=== PATIENT | male | born 1985 | race Caucasian/White ===

== ENCOUNTER 2017-01-17 13:46 | Emergency (ER) | payer SELFPAY ==
[2017-01-17 14:09] VITALS: O2SAT 99
--- NOTE | 2017-01-17 14:54 | ED.PDOC ---
History of Present Illness - General Chief Complaint: ENT Problem Time Seen by Provider: 01/17/17 14:43 Source: patient Exam Limitations: no limitations - History of Present Illness Initial Comments: Patient presents with one week of a sore throat and fever. He says he measured the fever at home with a forehead strip and it was 102. No cough. Has had weakness. It hurts to swallow and he feels swelling in his throat. No previous episodes. No other complaints. Timing/Duration: 1 week Severity: moderate Improving Factors: nothing Worsening Factors: eating Associated Symptoms: fever/chills Allergies/Adverse Reactions: Allergies Penicillins Allergy (Unknown, Verified 01/17/17 14:08) Hives Home Medications: Ambulatory Orders Nexium 05/03/15 Tramadol HCl [Ultram] 50 mg PO Q6HR PRN #15 tab 05/08/15 levoFLOXacin [Levaquin] 500 mg PO QDPC #10 tab 01/17/17 Review of Systems - Review of Systems Constitutional: States: see HPI EENTM: States: see HPI Respiratory: States: no symptoms reported Cardiology: States: no symptoms reported Gastrointestinal/Abdominal: States: no symptoms reported Genitourinary: States: no symptoms reported Musculoskeletal: States: no symptoms reported Skin: States: no symptoms reported Neurological: States: no symptoms reported Endocrine: States: no symptoms reported Hematologic/Lymphatic: States: see HPI Past Medical History (General) - Patient Medical History Hx Seizures: No Hx Stroke: No Hx Dementia: No Hx Asthma: No Hx of COPD: No Hx Cardiac Disorders: No Hx Congestive Heart Failure: No Hx Pacemaker: No Hx Hypertension: No Hx Thyroid Disease: No Hx Diabetes: No Hx Gastroesophageal Reflux: Yes Hx Renal Disease: No Hx of HIV: No Hx Hepatitis C: Yes Hx MRSA: Yes MRSA Source:: Wound Surgical History: appendectomy, cholecystectomy, tonsillectomy - Vaccination History Hx Influenza Vaccination: Yes - 2016 Hx Pneumococcal Vaccination: No - Social History Hx Tobacco Use: No Family Medical History - Family History Mother Family History: No Known Living Status: Still Living Physical Exam - Physical Exam General Appearance: Alert Ears, Nose, Throat: other - Swelling of the uvula. OP clear. Neck: non-tender, full range of motion, supple, lymphadenopathy (R) - mildly tender right anterior cervical LAD, mobile, fluctuant, rubbery in consistency Respiratory: lungs clear Cardiovascular/Chest: regular rate, rhythm Gastrointestinal/Abdominal: normal bowel sounds, non tender, soft Back Exam: no CVA tenderness Neurologic: consumer insights intern II-XII nml as tested Skin Exam: normal color Progress - Progress Progress: 01/17/17 14:56 Rapid strep negative. Departure - Departure Clinical Impression: Uvulitis Disposition: Discharge to Home or Self Care Condition: Good Departure Forms: ED Discharge - Pt. Copy, Patient Portal Self Enrollment Diet: resume usual diet Activity: increase activity as tolerated Prescriptions: levoFLOXacin [Levaquin] 500 mg PO QDPC #10 tab Home Medications: Ambulatory Orders Nexium 05/03/15 Tramadol HCl [Ultram] 50 mg PO Q6HR PRN #15 tab 05/08/15 levoFLOXacin [Levaquin] 500 mg PO QDPC #10 tab 01/17/17 Additional Instructions: Take medication as prescribed. Ibuprofen for pain and fever control. Increase oral fluids. Return to clinic or ER if symptoms are not gone in 7-10 days.
[2017-01-19 07:25] VITALS: BP 118/82; TEMP 98
== END 2017-01-17 16:15 | disposition home or self-care (01) ==
LOC: ER 13:46
DX: K12.2 Cellulitis and abscess of mouth (principal); K21.9 Gastro-esophageal reflux disease without esophagitis; Z88.0 Allergy status to penicillin; Z86.19 Personal history of other infectious and parasitic diseases

== ENCOUNTER 2017-07-03 08:54 | Inpatient (IN) | payer SELFPAY ==
[2017-07-03] MEDS ORDERED: SODIUM CHLORIDE 0.9% (FLUSH) 10 ML SYG IV PRN ×2 (09:34→15:00)
[2017-07-03] MEDS: SODIUM CHLORIDE 0.9% 1000ML 1,000 ML IVS PRN ×2 (09:42→12:03)
[2017-07-03] MEDS ORDERED: SODIUM CHLORIDE 0.9% 1000ML 1,000 ML IVS ONE (11:12)
--- NOTE | 2017-07-03 11:22 | ED.PDOC ---
History of Present Illness - General Chief Complaint: Drug or Alcohol Abuse Stated Complaint: drug overdose Time Seen by Provider: 07/03/17 09:33 Source: patient Exam Limitations: clinical condition, intoxication - History of Present Illness Initial Comments: PT PRESENTS TO THE ED IN SEVERE DISTRESS AND REQUIRES MY IMMEDIATE ATTENTION, HPI AND ROS LIMITED DUE TO PTS CONDITION. PT ADMITS TO USING IV METH TODAY AND NOW COMPLAINS OF SEVERE BACK PAIN. Timing/Duration: 1-3 hours Severity: severe Allergies/Adverse Reactions: Allergies Penicillins Allergy (Unknown, Verified 07/03/17 09:29) Hives Home Medications: Ambulatory Orders Nexium 05/03/15 Tramadol HCl [Ultram] 50 mg PO Q6HR PRN #15 tab 05/08/15 levoFLOXacin [Levaquin] 500 mg PO QDPC #10 tab 01/17/17 Review of Systems - Review of Systems Constitutional: States: see HPI EENTM: States: see HPI Respiratory: States: see HPI Cardiology: States: see HPI Gastrointestinal/Abdominal: States: see HPI Genitourinary: States: see HPI Musculoskeletal: States: see HPI Skin: States: see HPI Neurological: States: see HPI Endocrine: States: see HPI Hematologic/Lymphatic: States: see HPI Past Medical History (General) - Patient Medical History Hx Seizures: No Hx Stroke: No Hx Dementia: No Hx Asthma: No Hx of COPD: No Hx Cardiac Disorders: No Hx Congestive Heart Failure: No Hx Pacemaker: No Hx Hypertension: No Hx Thyroid Disease: No Hx Diabetes: No Hx Gastroesophageal Reflux: Yes Hx Renal Disease: No Hx of HIV: No Hx Hepatitis C: Yes Hx MRSA: Yes MRSA Source:: Wound Surgical History: other - Vaccination History Hx Influenza Vaccination: No Hx Pneumococcal Vaccination: No - Social History Hx Tobacco Use: No Hx Substance Use: Yes - IV METHAMPHETAMINE USE Hx Substance Use Treatment: - unknown - Activities of Daily Living Hospice Agency (if applicable):: None Family Medical History - Family History Mother Family History: No Known Living Status: Still Living Physical Exam - Physical Exam General Appearance: Agitated, Anxious, Obvious distress, Restless Ears, Nose, Throat: other - POOR DENTITION Respiratory: lungs clear, normal breath sounds, no respiratory distress Cardiovascular/Chest: no murmur, tachycardia Gastrointestinal/Abdominal: non tender, soft Back Exam: normal inspection Extremity: no pedal edema, other - TRACK LEY NOTED TO B/L UPPER EXTREMITIES Skin Exam: normal color, warm/dry Progress - Progress Progress: 07/03/17 11:24 PT RESTING COMFORTABLY, LESS TACHYCARDIC, HR NOW 115 AFTER 2MG IV ATIVAN AND IV NS. PTS MOTHER AT BEDSIDE, STATES THAT PT HAS BEEN SELF MEDICATING DUE TO DENTAL PAIN AND ISSUES WITH A RECENT DIVORCE. 07/03/17 11:44 PT CONTINUES TO REST COMFORTABLY, REMAINS TACHYCARDIC AFTER 2ND LITER IV NS. TEMP NOW 101.1, TYLENOL ORDERED, SEPIS PROTOCOL STARTED. DECISION MADE TO ADMIT. - Results/Orders Results/Orders: 07/03/17 09:34 URINE DRUG SCREEN, 7 ASSAY Stat Sodium Chloride 0.9% (Flush) [Saline Flush Syringe] 10 ml IV PRN PRN Sodium Chloride 0.9% 1000ML [Ns 1000 ml] 1,000 ml IVS .QD URINALYSIS Stat 07/03/17 09:45 EKG STAT 07/03/17 11:10 CK-MB Stat CREATINE PHOSPHOKINASE Stat 07/03/17 11:11 Chest,1 View [RAD] Stat 07/03/17 11:12 Sodium Chloride 0.9% 1000ML [Ns 1000 ml] 1,000 ml IVS ONCE UA [URINALYSIS] Stat Laboratory Results - last 24 hr 07/03/17 07/03/17 07/03/17 09:50 09:50 09:50 WBC 2.3 L* RBC 4.59 L Hgb 12.9 L Hct 37.1 L MCV 80.9 MCH 28.1 MCHC 34.8 RDW 13.2 Plt Count 318 MPV 6.9 L Absolute Neuts (auto) Not Reportable Absolute Lymphs (auto) Not Reportable Absolute Monos (auto) Not Reportable Absolute Eos (auto) Not Reportable Neutrophils % Not Reportable Neutrophils % (Manual) 71.0 Lymphocytes % Not Reportable Lymphocytes % (Manual) 19.0 Monocytes % Not Reportable Monocytes % (Manual) 3.0 Eosinophils % Not Reportable Basophils % Not Reportable Band Neutrophils 6.0 Eosinophils 1.0 RBC Morphology Plts antolin adequate Sodium 138 Potassium 3.0 L Chloride 105 Carbon Dioxide 23 Anion Gap 13.0 BUN 14 Creatinine 0.97 BUN/Creatinine Ratio 14.4 Random Glucose 96 Serum Osmolality 276.0 Calcium 8.9 Total Bilirubin 1.6 H AST 82 H ALT 61 H Alkaline Phosphatase 146 H Creatine Kinase 121 CK-MB (CK-2) 1.8 CK-MB (CK-2) % Not Reportable Troponin I 0.04 Serum Total Protein 6.5 Albumin 3.8 Globulin 2.7 Albumin/Globulin Ratio 1.4 Ethyl Alcohol < 5.40 - EKG/XRAY/CT EKG: Sinus - TACHYCARDIA@135BPM, NO INTERVALS, NL AXIS, ST depression - INFERIOR AND LATERAL LEADS WITH NO OLD EKG FOR COMPARISON XRAY: chest Xray Comments: VASCULAR CONGESTION WITH R LUNG INFILTRATE Departure - Departure Clinical Impression: Sepsis, Pneumonia, Leukopenia, Methamphetamine abuse, IV drug abuse Time of Disposition: 11:48 Disposition: Admit Patient Condition: Fair Departure Forms: ED Discharge - Pt. Copy, Patient Portal Self Enrollment Referrals: Willy Rodriguez MD [Primary Care Provider] - 1-2 Weeks Home Medications: Ambulatory Orders Nexium 05/03/15 Tramadol HCl [Ultram] 50 mg PO Q6HR PRN #15 tab 05/08/15 levoFLOXacin [Levaquin] 500 mg PO QDPC #10 tab 01/17/17 Decision To Admit - Decistion To Admit Decision to Admit Reason: Admit from ER - SEPSIS, PNEUMONIA, LEUKOPENIA, METHAMPHETAMINE ABUSE Decision to Admit Date: 07/03/17 - CASE DISCUSSED WITH RICARDO SPRING WHO AGREES TO ADMIT Decision to Admit Time: 11:49
--- NOTE | 2017-07-03 11:27 | RAD ---
EXAM DESCRIPTION: Chest,1 View CLINICAL HISTORY: Leukopenia. Altered mental status. FINDINGS/ IMPRESSION: Mild cardiac enlargement. Vascular congestion with faint interstitial infiltrate in the right lung. This could be edema or infectious infiltrate. No dense alveolar consolidation or pleural effusion Electronically signed by: Alvarez Ramírez MD 07/03/2017 11:26 AM CDT
[2017-07-03] MEDS ORDERED: ACETAMINOPHEN 500 MG TAB PO ONE (11:34)
[2017-07-03] MEDS ORDERED: cefTRIAXone SODIUM 2 GM in SODIUM CHL 0.9% 100ML MINI-BAG 100 ML IVPB ONE (11:35)
[2017-07-03] MEDS ORDERED: SODIUM CHL 0.9% 100ML MINI-BAG 100 ML IVPB ONE (12:00)
--- NOTE | 2017-07-03 14:03 | HP ---
SUPERVISING PHYSICIAN: Alvarez Pretty M.D. CHIEF COMPLAINT: Drug overdose. HISTORY OF PRESENT ILLNESS: Mr. Tay is a 31 year-old male patient that presented to the Emergency Department today with severe distress. Per E. R. report, the patient was complaining of severe overall pain, especially in the back and he had noted that he had been using methamphetamines today by injection. Per his mother's report, the patient is currently going through a marital dispute and has a young daughter that is in first grade. The patient has apparently had a past history of methamphetamine abuse. He does live with his mother at this point and she notes that she is unaware of when he is using, but notes that he had been clean for a long period of time until just recently. She reported that he woke up this morning and it was an effort trying to get his daughter to school, was unable to function saying that he was in severe pain all over. At that point, his mother notified 911 and the patient was taken to the Emergency Department. In the Emergency Department, initially his vital signs showed that he was febrile with a temperature of 102.5. He was tachycardic with a heart rate of 167, blood pressure 104/66. He was satting 98% on room air. Initially the patient left out the fact that he had been using methamphetamines. The patient was continuing to be worked up and was found to have a low white count of 2.3 with a left shift and increased bands. At that point an x-ray was completed of the chest as well as additional laboratory studies to include urinalysis which did show on x-ray per radiology interpretation some mild cardiac enlargement with vascular congestion and an infiltrate within the right lung. Urinalysis of a urinary catheter specimen showed microscopic results to have 1+ bacteria with no RBCs or WBCs. Sepsis protocol was started and a request for admission was made by Dr. Reynoso. The patient was initiated on IV fluids and given 2 liters of fluid in the Emergency Department. Additional laboratory studies were done which showed chemistries that he had a normal lactic acid at 2.2. Liver functions were elevated. Cardiac enzymes showed troponin 0.4. Electrolytes were within normal limits except for a noted low potassium of 3.0. Based on clinical findings and leukopenia with concerns for bacteremia secondary to the fact that the patient is known to be an IV drug user recently and in the past, the patient now is to be admitted to the Medical/Surgical floor for further evaluation and treatment with concerns for early sepsis possibly secondary to right lower lobe pneumonia and an underlying urinary tract infection. The patient was stabilized in the E. R. prior to admission to the Medical/Surgical floor. PAST MEDICAL HISTORY: Obtained from his mother as the patient was given Ativan in the Emergency Department for acute agitation and was unable to fully answer any questions. 1. History of previous Staph infections of the face. 2. Gastroesophageal reflux disease. 3. History of methamphetamine usage. PAST SURGICAL HISTORY: 1. Cholecystectomy. 2. Odell fundoplication. CURRENT MEDICATIONS: No medications were listed. ALLERGIES: PENICILLIN. FAMILY HISTORY: Unremarkable. SOCIAL HISTORY: The patient is unemployed, currently going through a marital dispute with a divorce with his . He has 1 child that is in first grade. They live in [place]. He does have a history of previously using methamphetamines as noted above, but does not drink alcohol or smoke tobacco. REVIEW OF SYSTEMS: Obtained from his mother as the patient was fairly well sedated and was unable to answer questions. Please refer to his History of Present Illness for current review of systems. PHYSICAL EXAMINATION: VITAL SIGNS: Initially in the Emergency Department showed he was febrile with a temperature of 102.5, pulse 167, blood pressure 104/66, respirations 32, satting 98% on room air. Weight 82.3 kg. GENERAL: The patient was resting comfortably on admission to the Medical/ Surgical floor having been given Ativan in the Emergency Department, and was arousable but unable to fully answer questions. HEENT: Tympanic membranes are clear bilaterally. Oropharynx was pink. Mucosal membranes were dry. Extremely poor dentition noted. NECK: Non-tender, supple with full range of motion. No jugular venous distention. CHEST: Lungs were clear to auscultation without any rhonchi, wheezing or rales. CARDIOVASCULAR: Tachycardic with no murmurs, gallops, or rubs noted. ABDOMEN: Non-tender, positive bowel sounds. EXTREMITIES: He does move all extremities ad héctor. There is no edema. There is note of some track bradley to his bilateral upper extremities. INTEGUMENT: Skin was warm and dry. Normal color. LABORATORY: White count on admission 2.3, hemoglobin 12.9, hematocrit 37.1. RBC indices were within normal limits. Platelet count was within normal limits at 318,000. Differential did show a left shift with approximately a 1500 absolute neutrophil count with elevated bands 6% on review of slide. Coagulation studies showed PT slightly elevated at 13.2 with PTT 31.4. Blood gas analysis was attempted but it was a mixed gas sample secondary to the patient's agitation, pH on that sample was 7.37. Chemistries on admission showed a low sodium of 3.0 with otherwise normal electrolytes, BUN 14, creatinine 0.97. Liver functions did show elevation of his total bilirubin at 1.6, AST 82, ALT 61, alkaline phosphatase at 146. Cardiac enzymes showed troponin 0.04 with CPK of 121. Lactic acid initially was 2.2. Urinalysis from a urine catheter specimen showed 1+ bacteria on microscopic exam, otherwise within normal limits. Toxicology urine screen showed positive for opioids, negative barbiturates, negative phencyclidine, positive for amphetamine/ methamphetamines, positive for Benzodiazepines, negative for cocaine metabolites , negative for cannabinoids. Alcohol was less than 5.4. Serology rapid Strep screen was negative. HIV 1 and 2 antibody panel was negative. Influenza by PCR A and B was negative. There is a Group A Strep culture pending. There is MRSA surveillance culture pending. Two sets of blood cultures are pending. Urine culture is pending. RADIOLOGY: Chest x-ray per radiology interpretation showed vascular congestion with a faint interstitial infiltrate within the right lung and mild cardiac enlargement. ASSESSMENT: 1. Early sepsis likely secondary to either community acquired pneumonia complicated by IV drug use and possible bacteremia with the patient having a history of MRSA. 2. Febrile illness likely secondary to underlying sepsis with a community acquired right lower lobe pneumonia versus complications secondary to acute methamphetamine intoxication. 3. Acute methamphetamine intoxication with initial cardiac evaluation showing severe tachycardia controlled well with Benzodiazepines and initiation of fluids. The patient showed to be hemodynamically stable at time of admission. 4. Dehydration secondary to acute methamphetamine intoxication. 5. Electrolyte imbalance to include hypokalemia. 6. Urinary tract infection with cultures pending. PLAN: The patient was started on sepsis protocol, given 2 liters of fluid initially in the Emergency Department. This will be continued on admission to the Medical/Surgical floor with initially D5 half normal saline with a repeat of BMP in 4 hours for reassessment of electrolytes as well as lactic acid. He was initiated on antibiotics in the Emergency Department initially with Ceftriaxone. This will be followed-up with initiation of Cefipime and vancomycin per Pharmacy protocol given the patient's past history of MRSA and IV drug abuse. He will be given Tylenol for his fevers. Ativan was administered in the Emergency Department which worked well for his agitation. This will be continued 2 mg every 8 hours as needed for acute agitation. Will monitor his vital signs closely. He will be on telemetry. Will put him on DVT prophylaxis as per protocol. Will anticipate length of stay to be 2 to 3 days. Awaiting blood cultures, sputum cultures and urine cultures. Until then, will continue with antibiotic treatment, IV fluids, supportive measures as needed, and treat appropriately until discharge. #[id number] [facility]
[2017-07-03] MEDS ORDERED: CEFEPIME 2 GM in SODIUM CHL 0.9% 50ML MIN-BAG+ 50 ML IVPB ONE (14:47)
[2017-07-03] MEDS ORDERED: IBUPROFEN 400 MG TAB PO PRN (15:00)
[2017-07-03] MEDS ORDERED: ACETAMINOPHEN SUPPOSITORY 650 MG PR PRN (15:00)
[2017-07-03] MEDS ORDERED: DEX 5% W/NACL 0.45% 1000ML 1,000 ML IVS PRN (15:00)
[2017-07-03] MEDS ORDERED: VANCOMYCIN PER PHARMACY INJ SCH (15:00)
[2017-07-03] MEDS ORDERED: IV SET AND CAP CHANGE INJ INJ SCH (15:00)
[2017-07-03] MEDS ORDERED: SODIUM CHL 0.9% 50ML MIN-BAG+ 50 ML IVPB ONE ×3 (15:34→20:07)
[2017-07-03] MEDS ORDERED: CEFEPIME 2 GM VIAL IVPB ONE ×3 (15:35→20:07)
--- NOTE | 2017-07-03 16:23 | PCM.CORE ---
Physician DVT/VTE - Nurse DVT Assessment & Total Each Risk Factor Represents 3 Points: Medical PT with Hx of [place], CHF, Severe infection/sepsis Each Risk Factor Represents 1 Point: Hx of smoking past year DVT Assessment Score: 4 - 3-4 High Risk Treatments: Early Ambulation *, Sequential Compression Device Pharmacological: Enoxaparin 40 mg SQ Daily
[2017-07-03] MEDS ORDERED: SODIUM CHLORIDE 0.9% 250ML 250 ML ONE ×2 (17:48→20:09)
[2017-07-03] MEDS ORDERED: VANCOMYCIN HCL INJ 1,000 MG VIAL IVPB ONE ×2 (17:48→20:09)
[2017-07-03] MEDS ORDERED: VANCOMYCIN HCL INJ 500 MG VIAL ONE ×2 (17:48→20:09)
[2017-07-03] MEDS: VANCOMYCIN HCL INJ 1,000 MG, VANCOMYCIN HCL INJ 500 MG in SODIUM CHLORIDE 0.9% 250ML 25... IVPB SCH (18:57)
[2017-07-03] MEDS: ENOXAPARIN SODIUM 40 MG/0.4 ML SYG SUBCU SCH (18:57)
[2017-07-03] MEDS: KCL 20MEQ/D5 1/2NS 1,000 ML IVS PRN (20:31)
[2017-07-03] MEDS: ACETAMINOPHEN 325 MG TAB PO PRN (21:14)
[2017-07-03] MEDS: CEFEPIME 2 GM in SODIUM CHL 0.9% 50ML MIN-BAG+ 50 ML IVPB SCH (21:42)
[2017-07-03] MEDS ORDERED: NICOTINE PATCH 14 MG TD SCH (22:30)
[2017-07-04] MEDS: VANCOMYCIN HCL INJ 1,000 MG, VANCOMYCIN HCL INJ 500 MG in SODIUM CHLORIDE 0.9% 250ML 25... IVPB SCH (02:51)
[2017-07-04] MEDS: ACETAMINOPHEN 325 MG TAB PO PRN ×2 (05:14→15:21)
[2017-07-04] MEDS: CEFEPIME 2 GM in SODIUM CHL 0.9% 50ML MIN-BAG+ 50 ML IVPB SCH ×3 (06:08→21:35)
[2017-07-04] MEDS ORDERED: VANCOMYCIN HCL INJ 500 MG VIAL ONE (07:12)
[2017-07-04] MEDS ORDERED: SODIUM CHLORIDE 0.9% 250ML 0 ML ONE (07:12)
[2017-07-04] MEDS ORDERED: CEFEPIME 2 GM VIAL IVPB ONE ×3 (07:12→19:32)
[2017-07-04] MEDS ORDERED: SODIUM CHL 0.9% 50ML MIN-BAG+ 50 ML IVPB ONE ×3 (07:12→19:32)
[2017-07-04] MEDS ORDERED: VANCOMYCIN HCL INJ 1,000 MG VIAL IVPB ONE (07:13)
[2017-07-04] MEDS ORDERED: KCL 20MEQ/0.45% NS 1,000 ML IVS ONE (08:03)
[2017-07-04] MEDS: ENOXAPARIN SODIUM 40 MG/0.4 ML SYG SUBCU SCH (08:19)
[2017-07-04] MEDS: KCL 20MEQ/D5 1/2NS 1,000 ML IVS PRN ×2 (08:23→17:25)
--- NOTE | 2017-07-04 09:06 | RAD ---
EXAM DESCRIPTION: XR CHEST 2 VIEWS CLINICAL HISTORY: Pneumonia COMPARISON: 07/03/2017 TECHNIQUE: PA/lateral FINDINGS: Normal cardiomediastinal silhouette. Hiatal hernia. No pulmonary edema. The perihilar interstitial change on the previous study has resolved. There is no interstitial infiltrate, alveolar edema or effusion. IMPRESSION: No focal infiltrate Hiatal hernia Electronically signed by: Alvarez Ramírez MD 07/04/2017 9:04 AM CDT
[2017-07-04] MEDS: traMADol HCL 50 MG TAB PO PRN ×3 (09:31→22:04)
[2017-07-04] MEDS: BIFIDOBACTERIUM INFANTIS 4 MG CAP PO SCH ×2 (12:04→20:24)
[2017-07-04] MEDS: POTASSIUM CHLORIDE 10 MEQ TAB PO SCH ×2 (12:04→16:35)
[2017-07-04] MEDS: ALBUTEROL SULFATE 2.5 MG/3 ML VIAL NEB SCH ×3 (12:40→19:20)
--- NOTE | 2017-07-04 14:47 | PN ---
DATE: 07/04/17 SUBJECTIVE: The patient is lying in the bed and in many ways feeling a little bit better except for a headache on the top of his head which will be treated with a Tramadol/Tylenol combination and observed. Appetite is fairly good. No shortness of breath or chest pains at this time. OBJECTIVE: VITAL SIGNS: The fever noted initially on admission has now gone and he is afebrile. Repeat chest x-ray fails to see the small infiltrate initially noted yesterday on admission chest x-ray. LUNGS: Generally clear. HEART: Regular. The patient is having no cough, no nausea or vomiting. ABDOMEN: Soft. LABORATORY: White count up to 13,900 with 85% neutrophils, no longer with bandemia. Hemoglobin 13.1. Chemistries show potassium up to 3.4 and creatinine stable at 0.92. Glucose 90, calcium 8.2. Cultures of blood and urine, nasal surveillance and throat cultures are negative at this time. ASSESSMENT: 1. Acute febrile illness, probably secondary to an underlying infection with chest x-ray showing possible right lower lobe pneumonia and followup failing to show that same infiltrate and illness possibly secondary to an acute methamphetamine intoxication. 2. Acute methamphetamine intoxication given IV before admission with resultant altered level of consciousness with marked tachycardia. 3. Moderate dehydration. 4. Mild hypokalemia. 5. Possibility of urinary tract infection, yet cultures are negative thus far as also are blood cultures with treatment continuing with vancomycin to be stopped and cefepime to be continued. PLAN: We will stop vancomycin and continue cefepime and reevaluate in the morning. If general condition seems to be fairly stable, we will continue with another week of antibiotic coverage. Now that the patient is afebrile and clinically much more alert, he is willing to strongly consider stopping all the methamphetamines and seek some professional assistance. #[id number] [facility]
[2017-07-04] MEDS ORDERED: KETOROLAC TROMETHAMINE INJ 30 MG/ML VIAL ONE (17:31)
[2017-07-04] MEDS ORDERED: KETOROLAC TROMETHAMINE INJ 30 MG/ML VIAL IV PRN (17:31)
[2017-07-04] MEDS ORDERED: NICOTINE PATCH 14 MG TD ONE (19:30)
[2017-07-04] MEDS ORDERED: NICOTINE PATCH 14 MG TD SCH (21:00)
[2017-07-05] MEDS: KCL 20MEQ/D5 1/2NS 1,000 ML IVS PRN (02:54)
[2017-07-05] MEDS: CEFEPIME 2 GM in SODIUM CHL 0.9% 50ML MIN-BAG+ 50 ML IVPB SCH ×2 (05:38→14:15)
[2017-07-05] MEDS ORDERED: SODIUM CHL 0.9% 50ML MIN-BAG+ 50 ML IVPB ONE (07:30)
[2017-07-05] MEDS ORDERED: CEFEPIME 2 GM VIAL IVPB ONE (07:31)
[2017-07-05] MEDS: POTASSIUM CHLORIDE 10 MEQ TAB PO SCH (07:59)
[2017-07-05] MEDS ORDERED: levoFLOXacin 500 MG TAB PO SCH (08:00)
[2017-07-05] MEDS: ALBUTEROL SULFATE 2.5 MG/3 ML VIAL NEB SCH (08:47)
[2017-07-05] MEDS: BIFIDOBACTERIUM INFANTIS 4 MG CAP PO SCH (08:58)
[2017-07-05] MEDS: ENOXAPARIN SODIUM 40 MG/0.4 ML SYG SUBCU SCH (08:58)
[2017-07-05 15:51] VITALS: BP 117/79; TEMP 97.4; O2SAT 100
--- NOTE | 2017-07-05 19:09 | DS ---
DISCHARGE DIAGNOSIS: 1. Acute febrile illness showing resolution probably secondary to early right lower lobe pneumonia clearing versus acute methamphetamine intoxication. 2. Acute methamphetamine intoxication having given himself parenterally before admission resulting in altered level of consciousness with marked tachycardia now improved. 3. Possible right lower lobe pneumonia noted radiographically showing clearing , probable community acquired with no cultures noted. 4. Moderate dehydration, improved with supplementation. 5. Mild hypokalemia. HISTORY OF PRESENT ILLNESS: This 31 year-old white male was admitted to the hospital from the Emergency Room in severe distress complaining of overall pain with located fever and under significant distress. He has been having some significant family stressful situations which has contributed to his taking doses of methamphetamine IV recently. The patient was brought in to the hospital being febrile with a temperature of 102.5, tachycardic, pulse rate 167 , blood pressure 104/66 with saturation 98%. He had significant findings suggesting a possibility of sepsis and cultures were obtained, yet no positive cultures were resulting. The patient was given IV fluids and was closely monitored because of the significance of his underlying condition. LABORATORY: White count was initially 2,300 with 71% neutrophils increasing to 13,900 and down to 11,400 before discharge. Hemoglobin stabilized at about 11.6. INR of 1.17. Initial blood gas showed low oxygen and pH of 7.37, probable venous specimen. Chemistry showed potassium 3.0 and with supplementation it was up to 3.4. Kidney functions normal. Glucose 113 on discharge. Calcium 7.9. Lactic acid was 2.2 and on repeat was down to 1. Liver enzymes were normal. Albumin 2.7 which was down from 3.8. Troponin was 0.04. Liver enzymes were slightly elevated initially returning towards normal on repeat. Urinalysis was generally clean with 1+ bacteriuria. Cultures were obtained and were negative, and they include blood, urine, nasal MRSA surveillance as well as a throat Group A Streptococcus culture as well. Influenza A and B are negative. Chest x-ray initially showed the possibility of right lung infiltrate showing clearing on repeat examination. HOSPITAL COURSE: The patient was feeling much improved on the morning of discharge and was ready to have continued outpatient followup in the clinic. PLAN: The patient will be discharged and have close followup with Becky Mast at the [facility] this next week. It is most important that he avoid all illegal drugs. To stay active. Eat nutritious diet. Observe for recurrent fever, adequate fluid intake. Return if not improving. Please refer to home medications. #[id number] [facility]
== END 2017-07-05 16:28 | disposition home or self-care (01) | DRG 194 ==
LOC: ER 08:54 → MS 14:01
PROVIDERS: ADMIT Nurse Practitioner Family; ATTEND Emergency Medicine
DX: J18.9 Pneumonia, unspecified organism (principal); N39.0 Urinary tract infection, site not specified; E86.0 Dehydration; E87.6 Hypokalemia; R51 Headache; F15.929 Other stimulant use, unspecified with intoxication, unspecified; K21.9 Gastro-esophageal reflux disease without esophagitis; Z88.0 Allergy status to penicillin; Z63.5 Disruption of family by separation and divorce; Z79.899 Other long term (current) drug therapy

== ENCOUNTER 2020-04-27 14:30 | Emergency (ER) | payer BC ==
[2020-04-27] MEDS ORDERED: LIDOCAINE HCL 2% (MOUTH-THROAT) 15 ML UD MT ONE (14:43)
--- NOTE | 2020-04-27 14:46 | ED.PDOC ---
History of Present Illness - General Chief Complaint: Dental/Mouth Stated Complaint: left upper jaw swelling Time Seen by Provider: 04/27/20 14:32 Source: patient, RN notes reviewed, Vital Signs reviewed Exam Limitations: no limitations - History of Present Illness Initial Comments: The patient is a 34 year old male with no significant past medical history who presents for left sided facial swelling and dental pain. Reports history of poor dentition "all my life" and recently noted swelling this morning. No fever or drainage. He does not have a dentist. No trouble swallowing, no shortness of breath. Allergies/Adverse Reactions: Allergies Penicillins Allergy (Unknown, Verified 07/03/17 09:29) Hives Home Medications: Ambulatory Orders Nexium 05/03/15 Tramadol HCl [Ultram] 50 mg PO Q6HR PRN #15 tab 05/08/15 Cephalexin Monohydrate [Keflex] 500 mg PO QID #25 cap 07/05/17 Chlorhexidine Mouth Rinse [Peridex] 15 ml SWSP BID 5 Days #1 bttl 04/27/20 Clindamycin HCl 300 mg PO Q6HRS 7 Days #56 cap 04/27/20 Tramadol HCl 50 mg PO Q6HR PRN #20 tab 04/27/20 Review of Systems - Review of Systems Constitutional: States: no symptoms reported. Denies: chills, fever EENTM: States: mouth pain, mouth swelling Respiratory: Denies: cough, short of breath Cardiology: States: no symptoms reported Gastrointestinal/Abdominal: States: no symptoms reported Genitourinary: States: no symptoms reported Musculoskeletal: States: no symptoms reported Skin: States: no symptoms reported Neurological: States: no symptoms reported Endocrine: States: no symptoms reported Hematologic/Lymphatic: States: no symptoms reported All other Systems: Reviewed and Negative Past Medical History (General) - Patient Medical History Hx Seizures: No Hx Stroke: No Hx Dementia: No Hx Asthma: No Hx of COPD: No Hx Cardiac Disorders: No Hx Congestive Heart Failure: No Hx Pacemaker: No Hx Hypertension: No Hx Thyroid Disease: No Hx Diabetes: No Hx Gastroesophageal Reflux: Yes Hx Renal Disease: No Hx of HIV: No Hx Hepatitis C: Yes Hx MRSA: Yes - Swab done MRSA Source:: Wound - Vaccination History Hx Influenza Vaccination: No Hx Pneumococcal Vaccination: No - Social History Hx Tobacco Use: No 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 no swelling to floor of mouth Neck: non-tender, full range of motion, supple Cardiovascular/Respiratory: regular rate, rhythm Neurologic: no motor/sensory deficits, alert, oriented x 3 Progress - Progress Progress: 04/27/20 15:03 Patient with left side facial swelling/pain, poor dentition diffusely. Apical abscess opened with needle aspiration, small amount of pus expressed. No submandibular swelling or evidence for diamond's. No airway compromise. Will treat with abx, peridex, analgesia. Will need to follow up with dentistry for tooth extraction. Procedures - Incision and Drainage #1 Site: Intraoral Procedure and Prep: pus drained Blade Size: 18G Needle Procedure Comments: Topical anesethesia with viscous lidocaine. An 18G needle was used to open apical abscess with small amount of purulent drainage. Departure - Departure Clinical Impression: Dental abscess, Chronic dental pain Time of Disposition: 15:05 Disposition: Discharge to Home or Self Care Condition: Fair Departure Forms: ED Discharge - Pt. Copy, Patient Portal Self Enrollment Instructions: DI for Mouth Pain, DI for Dental Pain Diet: other - Soft foods Activity: increase activity as tolerated Referrals: Willy Rodriguez MD [Primary Care Provider] - 1-2 Weeks Prescriptions: Clindamycin HCl 300 mg PO Q6HRS 7 Days #56 cap Tramadol HCl 50 mg PO Q6HR PRN #20 tab PRN Reason: Pain Chlorhexidine Mouth Rinse [Peridex] 15 ml SWSP BID 5 Days #1 bttl Home Medications: Ambulatory Orders Nexium 05/03/15 Tramadol HCl [Ultram] 50 mg PO Q6HR PRN #15 tab 05/08/15 Cephalexin Monohydrate [Keflex] 500 mg PO QID #25 cap 07/05/17 Chlorhexidine Mouth Rinse [Peridex] 15 ml SWSP BID 5 Days #1 bttl 04/27/20 Clindamycin HCl 300 mg PO Q6HRS 7 Days #56 cap 04/27/20 Tramadol HCl 50 mg PO Q6HR PRN #20 tab 04/27/20
[2020-04-27] MEDS ORDERED: HYDROcodone 5MG/APAP 325MG 1 EA TAB ONE (14:53)
[2020-04-27] MEDS ORDERED: HYDROcodone 5MG/APAP 325MG 1 EA TAB PO ONE (14:56)
[2020-04-27 15:20] VITALS: BP 145/97; TEMP 97.2; O2SAT 99
== END 2020-04-27 15:34 | disposition home or self-care (01) ==
LOC: ER 14:30
DX: K04.7 Periapical abscess without sinus (principal); K08.89 Other specified disorders of teeth and supporting structures